=== PATIENT | male | born 1955 | race Caucasian/White ===

== ENCOUNTER 2017-10-29 14:12 | Day surgery (SDC) | payer OTHER ==
[2017-10-29 15:14] LABS: ADD MAN DIFF? NO
[2017-10-29 15:17] LABS: BASOPHILS % 0.6 % (0.0-2.0); EOSINOPHILS # 0.1 10^3/ul (0.0-0.5); EOSINOPHILS % 1.3 % (0.0-7.0); HEMATOCRIT 44.9 % (42.0-52.0); HEMOGLOBIN 14.4 g/dl (14.0-18.0); LYMPHOCYTES # 0.9 10^3/ul (0.8-2.9); LYMPHOCYTES % 14.8 % (15.0-51.0); MEAN CORPUSCULAR HEMOGLOBIN 29.4 pg (29.0-33.0); MEAN CORPUSCULAR HGB CONC 32.1 g/dl (32.0-37.0); MEAN CORPUSCULAR VOLUME 91.6 fl (82.0-101.0); MEAN PLATELET VOLUME 10.7 fl (7.4-10.4); MONOCYTE # 0.4 10^3/ul (0.3-0.9); MONOCYTES % 6.6 % (0.0-11.0); NEUTROPHIL # 4.9 10^3/ul (1.6-7.5); NEUTROPHILS % 76.4 % (39.0-77.0); PLATELET COUNT 202 10^3/UL (140-415); RED CELL DISTRIBUTION WIDTH 13.8 % (11.5-14.5)
[2017-10-29 15:17] LABS: WHITE BLOOD COUNT 6.4 10^3/ul (4.8-10.8)
[2017-10-29 15:24] LABS: ADD UMIC YES; UR ASCORBIC ACID NEGATIVE (NEGATIVE); UR BILIRUBIN (Dip) NEGATIVE (NEGATIVE); UR BLOOD (Dip) NEGATIVE (NEGATIVE); UR CLARITY CLEAR (CLEAR); UR COLOR YELLOW (YELLOW); UR GLUCOSE (Dip) NEGATIVE (NEGATIVE); UR KETONES (Dip) NEGATIVE (NEGATIVE); UR LEUKOCYTE ESTERASE (Dip) NEGATIVE Leu/ul (NEGATIVE); UR NITRITE (Dip) NEGATIVE (NEGATIVE); UR RBC 0 /HPF (0-5); UR TOTAL PROTEIN (Dip) 1+ mg/dl (NEGATIVE); UR UROBILINOGEN (Dip) 1+ mg/dL (NEGATIVE); UR WBC 2 /HPF (0-5)
[2017-10-29 15:35] LABS: INR 0.93; PROTIME 12.6 Sec (11.9-14.9)
[2017-10-29 15:39] LABS: CREATININE 0.62 mg/dl (0.61-1.24)
[2017-10-29 15:39] LABS: BLOOD UREA NITROGEN 15 mg/dl (7-20)
[2017-10-29 15:42] LABS: PARTIAL THROMBOPLASTIN TIME 26.6 Sec (25.0-35.0)
[2017-10-29] MEDS ORDERED: LIDOCAINE 1%/EPI 30 ML INJ (16:35)
[2017-10-29] MEDS ORDERED: IODIXANOL LOCM 50 ML BTL (16:35)
[2017-10-29] MEDS ORDERED: FENTAnyl 50 MCG/ML VIAL (16:35)
[2017-10-29] MEDS ORDERED: HEPARIN 1000 UNITS/NS (A-LINE) 1,000 ML (16:35)
[2017-10-29] MEDS ORDERED: MIDAZOLAM 1 MG/ML 2 ML INJ ×2 (16:35→17:06)
[2017-10-29] MEDS ORDERED: CEFAZOLIN 2 GM/50 ML (PMX) 50 ML IVPB (16:36)
[2017-10-29] MEDS ORDERED: DIPHENHYDRAMINE 50 MG INJ (17:14)
[2017-10-29] MEDS: METOPROLOL (XL) 50 MG TAB PO (19:12)
[2017-10-29] MEDS: AMIODARONE 200 MG TAB PO (20:53)
== END 2017-10-29 21:36 | disposition home or self-care (01) ==
LOC: SDS 14:12
DX: I47.2 Ventricular tachycardia (principal); I42.9 Cardiomyopathy, unspecified; I25.10 Atherosclerotic heart disease of native coronary artery without angina pectoris; E11.9 Type 2 diabetes mellitus without complications; I10 Essential (primary) hypertension; E78.5 Hyperlipidemia, unspecified; E66.9 Obesity, unspecified; Z68.41 Body mass index [BMI] 40.0-44.9, adult
CPT/HCPCS: 33249; 71045; 81001; 82565; 82962; 84520; 85025; 85610; 85730; 93005

== ENCOUNTER 2017-12-10 12:24 | Inpatient (IN) | payer OTHER ==
[2017-12-10] MEDS: SODIUM CHLORIDE 0.9% 1L BAG IV* (14:24)
[2017-12-10 14:32] LABS: ADD MAN DIFF? NO
[2017-12-10] MEDS: PIPER-TAZO 3.375 GM IV (PMX) 100 ML IVPB ×2 (14:33→17:53)
[2017-12-10 14:44] LABS: WHITE BLOOD COUNT 9.5 10^3/ul (4.8-10.8)
[2017-12-10 14:44] LABS: ABNORMAL IP MESSAGE 1; BASOPHILS % 0.2 % (0.0-2.0); EOSINOPHILS % 0.1 % (0.0-7.0); HEMATOCRIT 41.8 % (42.0-52.0); HEMOGLOBIN 13.8 g/dl (14.0-18.0); LYMPHOCYTES # 0.4 10^3/ul (0.8-2.9); LYMPHOCYTES % 3.9 % (15.0-51.0); MEAN CORPUSCULAR HEMOGLOBIN 30.6 pg (29.0-33.0); MEAN CORPUSCULAR VOLUME 92.7 fl (82.0-101.0); MEAN PLATELET VOLUME 10.7 fl (7.4-10.4); MONOCYTE # 0.4 10^3/ul (0.3-0.9); NEUTROPHIL # 8.7 10^3/ul (1.6-7.5); NEUTROPHILS % 90.9 % (39.0-77.0); PLATELET COUNT 140 10^3/UL (140-415); POSITIVE DIFF @See below; RED BLOOD COUNT 4.51 10^6/ul (4.70-6.10); RED CELL DISTRIBUTION WIDTH 13.8 % (11.5-14.5)
[2017-12-10] MEDS: ACETAMINOPHEN 325 MG TAB PO ×2 (14:44→21:54)
[2017-12-10 14:52] LABS: ADD UMIC YES; UR ASCORBIC ACID NEGATIVE (NEGATIVE); UR BACTERIA FEW /HPF (NONE SEEN); UR BILIRUBIN (Dip) NEGATIVE (NEGATIVE); UR BLOOD (Dip) 3+ mg/dL (NEGATIVE); UR CLARITY CLOUDY (CLEAR); UR COLOR AMBER (YELLOW); UR GLUCOSE (Dip) 1+ mg/dL (NEGATIVE); UR KETONES (Dip) 1+ mg/dL (NEGATIVE); UR LEUKOCYTE ESTERASE (Dip) 2+ Leu/ul (NEGATIVE); UR MUCUS MANY /HPF (NONE SEEN); UR NITRITE (Dip) POSITIVE (NEGATIVE); UR NONSQUAMOUS EPITHELIAL CELL 3 /HPF (NONE SEEN); UR RBC > 182 /HPF (0-5); UR SPECIFIC GRAVITY (Dip) 1.029 (1.003-1.030); UR SQUAMOUS EPITHELIAL CELL FEW /HPF (FEW); UR TOTAL PROTEIN (Dip) 3+ mg/dl (NEGATIVE); UR UROBILINOGEN (Dip) 1+ mg/dL (NEGATIVE); UR WBC > 182 /HPF (0-5)
[2017-12-10 14:54] LABS: ANION GAP 14 (8-16); BLOOD UREA NITROGEN 13 mg/dl (7-20); CALCIUM 8.8 mg/dl (8.4-10.2); CARBON DIOXIDE 32 mmol/L (21-31); CHLORIDE 95 mmol/L (97-110); CREATININE 0.76 mg/dl (0.61-1.24); GLUCOSE 232 mg/dl (70-220); POTASSIUM 3.9 mmol/L (3.5-5.1); SODIUM 137 mmol/L (135-144)
[2017-12-10 14:56] LABS: INR 1.08; PROTIME 14.1 Sec (11.9-14.9); PT RATIO 1.1
[2017-12-10 14:57] LABS: PARTIAL THROMBOPLASTIN TIME 32.7 Sec (25.0-35.0)
[2017-12-10 15:05] LABS: TROPONIN-I 0.023 ng/ml (0.000-0.120)
[2017-12-10 15:25] LABS: LACTIC ACID 1.6 mmol/L (0.5-2.0)
[2017-12-10] MEDS ORDERED: ONDANSETRON 4 MG INJ IV (15:30)
[2017-12-10] MEDS ORDERED: ACETAMINOPHEN 325 MG TAB PO (15:30)
[2017-12-10] MEDS ORDERED: ALBUTEROL HFA 8 GM INHALER INH (16:30)
[2017-12-10] MEDS ORDERED: HYDROCODONE/APAP (5/325) TAB PO (17:00)
[2017-12-10] MEDS ORDERED: NACL 0.9% 3 ML SYG IV (17:00)
[2017-12-10 17:22] LABS: LACTIC ACID 1.2 mmol/L (0.5-2.0)
[2017-12-10] MEDS ORDERED: GLUCOSE GEL 15 GRAM TUBE PO ×2 (17:30)
[2017-12-10] MEDS ORDERED: GLUCAGON 1 MG INJ IM (17:30)
[2017-12-10] MEDS ORDERED: DEXTROSE 50% 50 ML SYRINGE IV ×2 (17:30)
[2017-12-10] MEDS ORDERED: GLUCOSE GEL 15 GRAM TUBE BUCCAL (17:30)
[2017-12-10] MEDS: metFORMIN 500 MG TAB PO (17:53)
[2017-12-10] MEDS: INSULIN ASPART [NOVOLOG] 3 ML PEN SC ×3 (17:55→20:21)
[2017-12-10 20:11] LABS: LACTIC ACID 1.7 mmol/L (0.5-2.0)
[2017-12-10] MEDS: METOPROLOL 50 MG TAB PO (20:18)
[2017-12-10] MEDS: TIMOLOL 0.5% 5 ML OPH BOTH EYES (20:19)
[2017-12-10] MEDS: BUSPIRONE 10 MG TAB PO (20:19)
[2017-12-10] MEDS: TAMSULOSIN (SR) 0.4 MG CAP PO (20:19)
[2017-12-10] MEDS: MONTELUKAST 10 MG TAB PO (20:19)
[2017-12-10] MEDS: INSULIN GLARGINE [LANTus] (100 UNITS/ML) SYG SC (20:20)
[2017-12-11] MEDS: PIPER-TAZO 3.375 GM IV (PMX) 100 ML IVPB ×3 (01:38→18:12)
[2017-12-11 05:21] LABS: ADD MAN DIFF? NO
[2017-12-11 05:28] LABS: WHITE BLOOD COUNT 4.5 10^3/ul (4.8-10.8)
[2017-12-11 05:28] LABS: ABNORMAL IP MESSAGE 1; BASOPHILS % 0.2 % (0.0-2.0); EOSINOPHILS % 0.2 % (0.0-7.0); HEMATOCRIT 38.1 % (42.0-52.0); HEMOGLOBIN 12.4 g/dl (14.0-18.0); LYMPHOCYTES # 0.4 10^3/ul (0.8-2.9); LYMPHOCYTES % 8.1 % (15.0-51.0); MEAN CORPUSCULAR HEMOGLOBIN 30.5 pg (29.0-33.0); MEAN CORPUSCULAR HGB CONC 32.5 g/dl (32.0-37.0); MEAN CORPUSCULAR VOLUME 93.6 fl (82.0-101.0); MONOCYTE # 0.3 10^3/ul (0.3-0.9); MONOCYTES % 5.7 % (0.0-11.0); NEUTROPHIL # 3.9 10^3/ul (1.6-7.5); NEUTROPHILS % 85.1 % (39.0-77.0); PLATELET COUNT 112 10^3/UL (140-415); POSITIVE DIFF @See below; RED BLOOD COUNT 4.07 10^6/ul (4.70-6.10); RED CELL DISTRIBUTION WIDTH 13.9 % (11.5-14.5)
[2017-12-11 05:54] LABS: ALANINE AMINOTRANSFERASE 50 IU/L (13-69); ALBUMIN 3.4 g/dl (3.3-4.9); ALBUMIN/GLOBULIN RATIO 1.09; ALKALINE PHOSPHATASE 64 IU/L (42-121); ANION GAP 12 (8-16); ASPARTATE AMINO TRANSFERASE 33 IU/L (15-46); BILIRUBIN,INDIRECT 0.4 mg/dl (0-1.1); BILIRUBIN,TOTAL 0.4 mg/dl (0.2-1.3); BLOOD UREA NITROGEN 11 mg/dl (7-20); CALCIUM 8.5 mg/dl (8.4-10.2); CARBON DIOXIDE 30 mmol/L (21-31); CHLORIDE 100 mmol/L (97-110); CREATININE 0.66 mg/dl (0.61-1.24); GLUCOSE 178 mg/dl (70-220); POTASSIUM 3.4 mmol/L (3.5-5.1); SODIUM 139 mmol/L (135-144); TOTAL PROTEIN 6.5 g/dl (6.1-8.1)
[2017-12-11 06:19] LABS: THYROID STIMULATING HORMONE 0.342 MIU/L (0.465-4.680)
[2017-12-11 06:49] LABS: HEMOGLOBIN A1C 7.8 % (0-5.9)
[2017-12-11] MEDS: BUSPIRONE 10 MG TAB PO ×2 (08:48→20:50)
[2017-12-11] MEDS: ASPIRIN (EC) 81 MG TAB PO (08:48)
[2017-12-11] MEDS: metFORMIN 500 MG TAB PO ×2 (08:48→18:12)
[2017-12-11] MEDS: TIMOLOL 0.5% 5 ML OPH BOTH EYES ×2 (08:48→20:52)
[2017-12-11] MEDS: TAMSULOSIN (SR) 0.4 MG CAP PO ×2 (08:48→20:49)
[2017-12-11] MEDS: PRASUGREL HYDROCHLORIDE 10 MG TABLET PO (08:48)
[2017-12-11] MEDS: METOPROLOL 50 MG TAB PO ×2 (08:49→20:50)
[2017-12-11] MEDS: ENOXAPARIN 30 MG/0.3 ML SYG SC (08:57)
[2017-12-11] MEDS: INSULIN ASPART [NOVOLOG] 3 ML PEN SC ×7 (08:57→20:39)
[2017-12-11] MEDS: INSULIN GLARGINE [LANTus] (100 UNITS/ML) SYG SC (20:40)
[2017-12-11] MEDS: MONTELUKAST 10 MG TAB PO (20:49)
[2017-12-12] MEDS: PIPER-TAZO 3.375 GM IV (PMX) 100 ML IVPB ×2 (02:06→10:03)
[2017-12-12] MEDS: INSULIN ASPART [NOVOLOG] 3 ML PEN SC ×4 (07:50→12:39)
[2017-12-12] MEDS: metFORMIN 500 MG TAB PO ×2 (07:50→09:58)
[2017-12-12] MEDS: TIMOLOL 0.5% 5 ML OPH BOTH EYES (08:57)
[2017-12-12] MEDS: BUSPIRONE 10 MG TAB PO (08:57)
[2017-12-12] MEDS: ASPIRIN (EC) 81 MG TAB PO (08:58)
[2017-12-12] MEDS: TAMSULOSIN (SR) 0.4 MG CAP PO (08:58)
[2017-12-12] MEDS: PRASUGREL HYDROCHLORIDE 10 MG TABLET PO (08:58)
[2017-12-12] MEDS: ENOXAPARIN 30 MG/0.3 ML SYG SC ×2 (09:00→10:21)
[2017-12-12] MEDS: METOPROLOL 50 MG TAB PO (09:01)
== END 2017-12-12 13:25 | disposition home or self-care (01) | DRG 872 ==
LOC: E/R 12:24 → MS1 15:22
DX: A41.9 Sepsis, unspecified organism (principal); N39.0 Urinary tract infection, site not specified; Z68.41 Body mass index [BMI] 40.0-44.9, adult; B96.20 Unspecified Escherichia coli [E. coli] as the cause of diseases classified elsewhere; E11.65 Type 2 diabetes mellitus with hyperglycemia; I10 Essential (primary) hypertension; E78.5 Hyperlipidemia, unspecified; N40.0 Benign prostatic hyperplasia without lower urinary tract symptoms; E66.01 Morbid (severe) obesity due to excess calories; I25.10 Atherosclerotic heart disease of native coronary artery without angina pectoris; Z79.82 Long term (current) use of aspirin; Z79.84 Long term (current) use of oral hypoglycemic drugs; Z95.1 Presence of aortocoronary bypass graft; Z95.2 Presence of prosthetic heart valve; Z95.5 Presence of coronary angioplasty implant and graft
CPT/HCPCS: 36415; 71045; 74176; 76775; 80048; 80053; 81001; 82962; 83036; 83605; 84443; 84484; 85025; 85610; 85730; 87040; 87086; 93005; 96374; 99291-25

== ENCOUNTER 2017-12-28 14:51 | Emergency (ER) | payer OTHER ==
[2017-12-28] MEDS: SOD CHLORIDE 0.9% 1,000 ML IV (16:57)
[2017-12-28] MEDS: ONDANSETRON 4 MG INJ IV (16:57)
[2017-12-28] MEDS: HYDROmorphONE 1 MG/ML SYG IV (16:57)
[2017-12-28 17:05] LABS: ADD MAN DIFF? NO
[2017-12-28 17:07] LABS: BASOPHILS % 0.6 % (0.0-2.0); EOSINOPHILS # 0.1 10^3/ul (0.0-0.5); EOSINOPHILS % 1.1 % (0.0-7.0); HEMATOCRIT 43.8 % (42.0-52.0); LYMPHOCYTES % 13.7 % (15.0-51.0); MEAN CORPUSCULAR HEMOGLOBIN 29.9 pg (29.0-33.0); MEAN CORPUSCULAR VOLUME 93.6 fl (82.0-101.0); MEAN PLATELET VOLUME 10.5 fl (7.4-10.4); MONOCYTE # 0.5 10^3/ul (0.3-0.9); MONOCYTES % 6.5 % (0.0-11.0); NEUTROPHIL # 5.5 10^3/ul (1.6-7.5); NEUTROPHILS % 77.8 % (39.0-77.0); PLATELET COUNT 227 10^3/UL (140-415); RED BLOOD COUNT 4.68 10^6/ul (4.70-6.10); RED CELL DISTRIBUTION WIDTH 13.9 % (11.5-14.5)
[2017-12-28 17:07] LABS: WHITE BLOOD COUNT 7.1 10^3/ul (4.8-10.8)
[2017-12-28 17:28] LABS: ALANINE AMINOTRANSFERASE 33 IU/L (13-69); ALBUMIN 3.8 g/dl (3.3-4.9); ALBUMIN/GLOBULIN RATIO 1.08; ALKALINE PHOSPHATASE 64 IU/L (42-121); AMYLASE 62 U/L (11-123); ANION GAP 13 (8-16); ASPARTATE AMINO TRANSFERASE 21 IU/L (15-46); BILIRUBIN,INDIRECT 0.3 mg/dl (0-1.1); BILIRUBIN,TOTAL 0.3 mg/dl (0.2-1.3); BLOOD UREA NITROGEN 21 mg/dl (7-20); CALCIUM 9.7 mg/dl (8.4-10.2); CARBON DIOXIDE 28 mmol/L (21-31); CHLORIDE 105 mmol/L (97-110); CREATININE 0.84 mg/dl (0.61-1.24); GLUCOSE 161 mg/dl (70-220); LIPASE 115 U/L (23-300); POTASSIUM 4.1 mmol/L (3.5-5.1); SODIUM 142 mmol/L (135-144); TOTAL PROTEIN 7.3 g/dl (6.1-8.1)
[2017-12-28 17:29] LABS: PROTIME 13.3 Sec (11.9-14.9)
[2017-12-28 17:39] LABS: TROPONIN-I < 0.012 ng/ml (0.000-0.120)
[2017-12-28 18:34] LABS: ADD UMIC YES; UR ASCORBIC ACID NEGATIVE (NEGATIVE); UR BACTERIA FEW /HPF (NONE SEEN); UR BILIRUBIN (Dip) NEGATIVE (NEGATIVE); UR BLOOD (Dip) 1+ mg/dL (NEGATIVE); UR CLARITY SLIGHTLY CLOUDY (CLEAR); UR COLOR YELLOW (YELLOW); UR GLUCOSE (Dip) NEGATIVE (NEGATIVE); UR KETONES (Dip) NEGATIVE (NEGATIVE); UR LEUKOCYTE ESTERASE (Dip) 2+ Leu/ul (NEGATIVE); UR MUCUS FEW /HPF (NONE SEEN); UR NITRITE (Dip) NEGATIVE (NEGATIVE); UR RBC 8 /HPF (0-5); UR SPECIFIC GRAVITY (Dip) 1.024 (1.003-1.030); UR SQUAMOUS EPITHELIAL CELL FEW /HPF (FEW); UR TOTAL PROTEIN (Dip) 1+ mg/dl (NEGATIVE); UR UROBILINOGEN (Dip) 1+ mg/dL (NEGATIVE); UR WBC > 182 /HPF (0-5)
[2017-12-28] MEDS: CEFEPIME 2GM/50 ML (PMX) 50 ML IVPB (19:39)
== END 2017-12-28 20:16 | disposition home or self-care (01) ==
LOC: E/R 14:51
DX: N30.01 Acute cystitis with hematuria (principal); I10 Essential (primary) hypertension; E11.9 Type 2 diabetes mellitus without complications; J45.909 Unspecified asthma, uncomplicated; Z79.82 Long term (current) use of aspirin; Z95.1 Presence of aortocoronary bypass graft; Z79.84 Long term (current) use of oral hypoglycemic drugs
CPT/HCPCS: 74176; 80053; 81001; 82150; 83690; 84484; 85025; 85610; 85730; 87040; 87086; 93005; 96374; 96375; 99285-25

== ENCOUNTER 2018-04-08 13:57 | Day surgery (SDC) | payer OTHER ==
[2018-04-08] MEDS ORDERED: FENTAnyl 50 MCG/ML VIAL (17:19)
[2018-04-08] MEDS ORDERED: MIDAZOLAM 1 MG/ML 2 ML INJ (17:19)
[2018-04-08] MEDS ORDERED: LIDOCAINE 1% (MDV) 20 ML INJ (17:20)
[2018-04-08] MEDS ORDERED: IODIXANOL LOCM 100 ML BTL ×3 (17:20→17:51)
[2018-04-08] MEDS ORDERED: DIPHENHYDRAMINE 50 MG INJ (17:26)
[2018-04-08] MEDS: SOD CHLORIDE 0.45% 1,000 ML IV (19:10)
[2018-04-08] MEDS: METOPROLOL 25 MG TAB PO (20:59)
[2018-04-08] MEDS: AMLODIPINE 10 MG TAB PO ×2 (20:59→21:56)
[2018-04-08] MEDS ORDERED: DEXTROSE 50% 50 ML SYRINGE IV ×2 (21:00)
[2018-04-08] MEDS: LISINOPRIL 20 MG TAB PO (21:00)
[2018-04-08] MEDS ORDERED: GLUCAGON 1 MG INJ IM (21:00)
[2018-04-08] MEDS ORDERED: GLUCOSE GEL 15 GRAM TUBE BUCCAL (21:00)
[2018-04-08] MEDS: ASPIRIN 81 MG TAB PO (21:00)
[2018-04-08] MEDS ORDERED: GLUCOSE GEL 15 GRAM TUBE PO ×2 (21:00)
[2018-04-08] MEDS: GLIMEPIRIDE 2 MG TAB PO (21:00)
== END 2018-04-08 22:03 | disposition home or self-care (01) ==
LOC: CCL 13:57 → SDS 13:57 → CCL 22:03
DX: I25.10 Atherosclerotic heart disease of native coronary artery without angina pectoris (principal); E11.9 Type 2 diabetes mellitus without complications; R94.31 Abnormal electrocardiogram [ECG] [EKG]; I73.9 Peripheral vascular disease, unspecified; I10 Essential (primary) hypertension; J45.909 Unspecified asthma, uncomplicated; Z87.891 Personal history of nicotine dependence
CPT/HCPCS: 71045; 82962; 93454

== ENCOUNTER 2018-07-11 13:12 | Inpatient (IN) | payer OTHER ==
[~2018-07-11 13:12] MED LIST: PROPOFOL 200 MG INJ
[2018-07-11] MEDS ORDERED: VANCOMYCIN 1 GM (PMX) 250 ML (13:50)
[2018-07-11] MEDS: VANCOMYCIN 1 GM (PMX) 250 ML IVPB (14:05)
[2018-07-11] MEDS ORDERED: FENTAnyl 50 MCG/ML VIAL (15:00)
[2018-07-11] MEDS ORDERED: POLYMYXIN/BACITRACIN 1L IRRIG (15:06)
[2018-07-11] MEDS ORDERED: LIDOCAINE 1%/EPI (1:100,000) (MDV) 20 ML (15:10)
[2018-07-11] MEDS ORDERED: MIDAZOLAM 1 MG/ML 2 ML INJ (15:16)
[2018-07-11] MEDS ORDERED: PROPOFOL 40 ML (15:24)
[2018-07-11] MEDS ORDERED: hydrALAzine 20 MG INJ IV (15:30)
[2018-07-11] MEDS ORDERED: ONDANSETRON 4 MG INJ IV (15:30)
[2018-07-11] MEDS ORDERED: FENTAnyl 50 MCG/ML VIAL IV ×2 (15:30)
[2018-07-11] MEDS ORDERED: EPHEDrine SULFATE 50 MG/5 ML SYG IV (15:30)
[2018-07-11] MEDS ORDERED: METOCLOPRAMIDE 10 MG INJ IV (15:30)
[2018-07-11] MEDS ORDERED: OXYCODONE/ACETAMINOPHEN (5/325) TAB PO (15:30)
[2018-07-11] MEDS ORDERED: HYDROmorphONE 1 MG/5 ML IV SYRINGE IV ×2 (15:30)
[2018-07-11] MEDS ORDERED: LABETALOL HCL 20MG INJ IV (15:30)
[2018-07-11] MEDS ORDERED: ONDANSETRON 4 MG INJ (15:34)
[2018-07-11] MEDS ORDERED: IODIXANOL LOCM 100 ML BTL (15:40)
[2018-07-11] MEDS ORDERED: HYDROCODONE/APAP (5/325) TAB PO (19:00)
[2018-07-11] MEDS: TAMSULOSIN (SR) 0.4 MG CAP PO (20:55)
[2018-07-11] MEDS: MONTELUKAST 10 MG TAB PO (20:55)
[2018-07-11] MEDS: METOPROLOL 100 MG TAB PO (20:55)
[2018-07-11] MEDS ORDERED: GLUCOSE GEL 15 GRAM TUBE BUCCAL (21:00)
[2018-07-11] MEDS ORDERED: DEXTROSE 50% 50 ML SYRINGE IV ×2 (21:00)
[2018-07-11] MEDS ORDERED: GLUCOSE GEL 15 GRAM TUBE PO ×2 (21:00)
[2018-07-11] MEDS ORDERED: GLUCAGON 1 MG INJ IM (21:00)
[2018-07-11] MEDS: ACCU-CHEK XX (21:00)
[2018-07-11] MEDS ORDERED: NON-FORMULARY/PATIENT OWN MED (Albuterol/Ipratropium* (Combivent Respimat*) 2 PUFF) INHALATION (21:00)
[2018-07-11] MEDS: CEFAZOLIN 1 GM/50 ML (PMX) 50 ML IVPB (21:14)
[2018-07-11] MEDS: ACETAMINOPHEN 325 MG TAB PO (21:31)
[2018-07-12] MEDS: PANTOPRAZOLE (EC) 40 MG TAB PO (05:27)
[2018-07-12] MEDS: CEFAZOLIN 1 GM/50 ML (PMX) 50 ML IVPB ×2 (05:27→11:04)
[2018-07-12] MEDS: ACCU-CHEK XX ×2 (08:00→11:30)
[2018-07-12] MEDS: GLIMEPIRIDE 2 MG TAB PO (08:26)
[2018-07-12] MEDS: TIOTROPIUM 18 MCG CAPSULE INHA DEV INH (08:30)
[2018-07-12] MEDS: FUROSEMIDE 40 MG TAB PO (08:31)
[2018-07-12] MEDS: ASPIRIN (EC) 81 MG TAB PO (08:31)
[2018-07-12] MEDS: PRASUGREL HYDROCHLORIDE 10 MG TABLET PO (08:31)
[2018-07-12] MEDS: LISINOPRIL 20 MG TAB PO (08:32)
[2018-07-12] MEDS: AMLODIPINE 10 MG TAB PO (08:32)
[2018-07-12] MEDS: FINASTERIDE 5 MG TAB PO (08:32)
[2018-07-12] MEDS: METOPROLOL 100 MG TAB PO (08:33)
[2018-07-12] MEDS ORDERED: [UNRECOGNIZED DRUG - OTHER] XX (15:00)
[2018-07-12] MEDS ORDERED: NON-FORMULARY/PATIENT OWN MED (Albuterol/Ipratropium* (Combivent Respimat*) 2 PUFF) XX (21:00)
[2018-07-12] MEDS ORDERED: IPRATROPIUM (HFA) 12.9 GM INHALER INH (21:00)
[2018-07-12] MEDS ORDERED: ALBUTEROL HFA 8 GM INHALER INH (21:00)
[2018-07-13] MEDS ORDERED: FLUTICASONE/VILANTEROL 200-25 INH DEVICE INH (09:00)
[2018-07-13] MEDS ORDERED: metFORMIN 500 MG TAB PO (12:00)
== END 2018-07-12 16:05 | disposition home or self-care (01) | DRG 227 ==
LOC: CCL 13:12 → SDS 13:12 → CCL 18:30 → REC 18:39 → 6WM 18:57
PROVIDERS: Internal Medicine
PROC: 0JPT0PZ Removal of Cardiac Rhythm Related Device from Trunk Subcutaneous Tissue and Fascia, Open Approach (ICD-10-PCS; principal; 2018-07-11 15:00)
PROC: 0JH609Z Insertion of Cardiac Resynchronization Defibrillator Pulse Generator into Chest Subcutaneous Tissue and Fascia, Open Approach (ICD-10-PCS; 2018-07-11 15:00)
PROC: 02HL3KZ Insertion of Defibrillator Lead into Left Ventricle, Percutaneous Approach (ICD-10-PCS; 2018-07-11 15:00)
DX: I47.2 Ventricular tachycardia (principal); I42.9 Cardiomyopathy, unspecified; Z68.41 Body mass index [BMI] 40.0-44.9, adult; I25.10 Atherosclerotic heart disease of native coronary artery without angina pectoris; I25.2 Old myocardial infarction; E66.01 Morbid (severe) obesity due to excess calories; E11.9 Type 2 diabetes mellitus without complications; I11.0 Hypertensive heart disease with heart failure; N40.0 Benign prostatic hyperplasia without lower urinary tract symptoms; I50.9 Heart failure, unspecified; I44.7 Left bundle-branch block, unspecified; Z95.3 Presence of xenogenic heart valve; Z95.5 Presence of coronary angioplasty implant and graft; Z95.1 Presence of aortocoronary bypass graft
CPT/HCPCS: 33249; 71045; 82962; 93005